=== PATIENT | female | born 1990 | race Caucasian/White ===

== ENCOUNTER 2016-12-14 14:26 | Emergency (ER) | payer OTHER ==
--- NOTE | 2016-12-14 17:22 | DIAGNOSTIC IMAGING REPORT ---
PROCEDURE: US 2ND TRIMESTER INDICATION: Pain. Nausea and vomiting. TECHNIQUE: Arreguin scale, color, and spectral Doppler images of the second trimester gravid uterus were obtained. COMPARISON: None. FINDINGS: There is a viable intrauterine in cephalic position. Placenta is anterior and there is no evidence of previa. Normal amniotic fluid and cervix length (4.6 cm). BPD 7.1 cm ( 28.3 weeks), HC 26.2 cm (28.3 weeks), AC 23.6 cm (28.0 weeks), FL 5.2 cm (27.7 weeks). Anatomic survey was not performed (as requested). IMPRESSION: 1. Viable intrauterine at 28.0 weeks menstrual age (plus or minus 2.5 weeks). ARVIND is 03/07/2017 based on today's study. 2. Cephalic position. 3. No evidence of acute process.
--- NOTE | 2016-12-14 17:39 | ED NURSING NOTES ---
Clinical Report - Nurses [facility] [address] [place] [address] 12/14/2016 14:30 Patient: JASON HODGSON TRIAGE Triage time 14:Dec 14 2016. Acuity: LEVEL 3. Chief Complaint: ABDOMINAL PAIN, NAUSEA and VOMITING. [place] COMA SCORE: [place] Coma Scale: 15- eyes open spontaneously (4); best verbal response- oriented x 4 (5); best motor response- obeys commands (6). --14:41 Katarina Bueno R.N. 14:36 12/14/16. BP: 113/66. HR: 112. RR: 20. O2 saturation: 100%. Temp: 98.0 F. Pain level now 0/10. --14:41 Katarina Bueno R.N. Weight: 93.4 kg stated. Height/Length: 65 inches Per Patient. BMI: 34.3. --14:37 Katarina Bueno R.N. Medications Vitamins Oral. --14:37 Katarina Bueno R.N. Allergies No Known Drug Allergy. --14:37 Katarina Bueno R.N. History Arrived by private vehicle. Historian: patient. Accompanied by family. This started today. She has had nausea, vomiting and abdominal pain. Last oral intake by patient was lunch yesterday. PAST MEDICAL HX: Currently : EDC:03/15/17. Has had care by architectural draftsman. G 2. P 1. Ab 0. SOCIAL HX: Smoker- current status unknown (around second hand smoke). Alcohol use. Patient smells of ETOH in the emergency department. No recent travel. She has had contact with a sick individual. ( and son throwing up). SELF HARM ASSESSMENT: A self harm assessment was performed. The patient answered "no" to the question "Have you recently felt down, depressed, or hopeless?" and "Do you have thoughts of harming or killing yourself?". FALL RISK ASSESSMENT: Fall risk assessment completed. No fall risk identified. NUTRITIONAL RISK ASSESSMENT: The nutritional risk assessment revealed no deficiencies. FUNCTIONAL ASSESSMENT: Functional assessment: no impairments noted. LEARNING NEEDS ASSESSMENT: The learning needs assessment revealed no barriers. ABUSE ASSESSMENT: Abuse assessment: (yes) The patient was asked "Do you feel safe in your home?". SKIN INTEGRITY ASSESSMENT: Skin integrity risk assessment completed. No skin integrity risk identified. --14:41 Katarina Bueno R.N. PROBLEMS: no known problems. ADDITIONAL SURGERIES: no known surgeries. Interventions ID band on patient. --14:41 Katarina Bueno R.N. PHYSICAL ASSESSMENT Ambulatory to room. GENERAL / NEURO / PSYCH: Alert. Oriented X 4. Appears in no acute distress. HEENT: Mucous membranes are pink. RESPIRATORY: Respirations not labored. Breath sounds within normal limits. CVS: Normal sinus rhythm noted. Capillary refill less than 2 seconds. GI / : The patient has had nausea. Emesis noted. Abdominal tenderness. SKIN: Skin is warm and dry. --14:44 Katarina Bueno R.N. NURSING PROGRESS NOTES The initial plan of care for this patient includes an assessment with efforts to address patient positioning, appropriate ambient lighting and comfortable environmental temperature; impairment of the gastrointestinal system. Pulse oximeter and NIBP monitor placed on patient. Patient gowned. Head of bed elevated 60 degrees. Call light placed in reach. Side rails up x 1. Bed placed in lowest position. Brakes of bed on. ( FHR 155). --14:44 Katarina Bueno R.N. 14:56 12/14/2016 Site #1 started via IV in the right hand with an 22g angiocath, with aseptic technique and good blood return; two attempts. Saline lock flushed with 10 mL saline. --14:56 Katarina Bueno R.N. 14:56 12/14/2016 Started bag #1 1000 mL IV Fluids IV NS (Saline); at 1000 mL/hr over 0.5 hour(s) via site #1 via IV pump. Allergies verified and confirmed 5 rights. IV patency established. IV site checked: no pain, redness, or swelling. IV flushed thoroughly pre- and post-medication administration. --14:56 Katarina Bueno R.N. 14:57 12/14/2016 Zofran (Ondansetron HCl) IVP 4 mg given over 2 minute(s) via site #1. Allergies verified and confirmed 5 rights. IV patency established. IV site checked: no pain, redness, or swelling. IV flushed thoroughly pre- and post-medication administration. --14:57 Katarina Bueno R.N. DISPOSITION / DISCHARGE 17:30 12/14/2016 IV Fluids IV NS Discontinued: bag #1 infused. Total amount infused: 1000 mL. IV patency established. IV site checked: no pain, redness, or swelling. IV flushed thoroughly. --17:55 Katarina Bueno R.N. 17:54 12/14/2016 Site #1 removed upon discharge. Catheter intact. Pressure dressing applied. --17:54 Katarina Bueno R.N. Departure time: 1750. Condition at departure: improved. No learning barriers present. Discharge instructions provided and reviewed with the patient. Reviewed warnings. Reviewed medication(s). Treatments reviewed. Reviewed referrals. Patient verbalized understanding. Written instructions provided in Wolof. The patient was discharged home and accompanied by spouse. She left the Emergency Department ambulatory and via private vehicle. Spouse driving. --17:55 Katarina Bueno R.N. 17:52 12/14/16. BP: 90/60. HR: 100. RR: 18. O2 saturation: 100%. Temp: 98.6 F. Pain level now 0/10. --17:55 Katarina Bueno R.N. Locked/Released at 12/14/2016 17:55 by Katarina Bueno R.N.
--- NOTE | 2016-12-14 17:39 | ED ORDER SUMMARY ---
..... Patient: JASON HODGSON OrderSheet [facility] VisitID: [id number] [address] [place] [address] 26y, F Registration Date/Time: 12/14/2016 ORDER SHEET Weight: 93.4 kg (stated) Allergies: No Known Drug Allergy GENERAL ORDERS: CBC w Diff Urgent (14:36 12/14/2016 Debbie PAVON) (Ack 14:39 LNations ER Tech1) (14:56 LWhalen R.N.) CMP Urgent (14:36 12/14/2016 Debbie PAVON) (Ack 14:40 LNations ER Tech1) (14:56 LWhalen R.N.) UA-Culture if indicated Urgent (14:36 12/14/2016 Debbie PAVON) (Ack 14:40 LNations ER Tech1) (14:56 LWhalen R.N.) Amylase Urgent (14:36 12/14/2016 Debbie PAVON) (Ack 14:40 LNations ER Tech1) (14:56 LWhalen R.N.) Lipase Urgent (14:36 12/14/2016 Debbie PAVON) (Ack 14:40 LNations ER Tech1) (14:56 LWhalen R.N.) Heart Tones (14:36 12/14/2016 Debbie PAVON) (Ack 14:39 LNations ER Tech1) (14:56 LWhalen R.N.) US OB 2nd Trimester (13 June 2016) Urgent (16:20 12/14/2016 Debbie PAVON) (Ack 16:25 LNations ER Tech1) (17:55 LWhalen R.N.) MEDICATION ORDERS: IV FLUIDS: IV NS : initial bolus 500 mL (1000 mL/hr), then 125 mL/hr for 4h (NOW); Urgent (14:35 12/14/2016 Debbie PAVON) (14:56 LWhalen R.N.) Zofran IV 4 mg (NOW) (14:57 12/14/2016 LWhalen R.N. per protocol) (14:57 LWhalen R.N.) ORDER SHEET NOTES: [Electronically signed by Katarina Bueno R.N. (17:55 12/14/2016)] [Electronically signed by Nikita Phillips MD (01:14 12/15/2016)] [Electronically locked/signed by Katarina Bueno R.N. (17:55 12/14/2016)]
--- NOTE | 2016-12-14 17:39 | ED CLINICAL REPORT ---
Clinical Report - Physicians/Mid Levels [facility] [address] [place] [place] [address] 12/14/2016 14:30 Patient: JASON HODGSON Time Seen: 14:35. Arrived- By private vehicle. Historian- patient. HISTORY OF PRESENT ILLNESS Chief Complaint: VOMITING. This started last night and is still present. It was abrupt in onset and has been intermittent. No recent travel. She has had nausea. She has had vomiting. The vomiting has occurred numerous times. No blood-tinged emesis or frankly bloody emesis. No diarrhea, black stools, bloody stools, constipation or flank pain. She has had crampy abdominal pain (cramping). Has recently been camping ([facility]) but not recently been on antibiotics. 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 She has had contact with a sick spouse and child. Last bowel movement: yesterday. The illness is described as severe. Similar symptoms previously: None. REVIEW OF SYSTEMS Last normal menstrual period- 13 Jun 2016. Currently : 26 weeks EGA: EDC:15 Mar 2017 Has had care by wood technologist. Recent sonogram showed viable intrauterine . G 2. P 1. No chills, fever, sweats, calf pain or chest pain. No cough, difficulty breathing, palpitations, black stools or bloody stools. No constipation or urinary problems. she denies headache or vision changes. She has had no vaginal bleeding or abnormal discharge. She denies contractions. She has had some mild chronic leg swelling throughout her which remains unchanged. All systems otherwise negative, except as recorded above. SOCIAL HISTORY Never smoker. No alcohol use. Residence: [place] she lives with spouse. Has good social support. FAMILY HISTORY Diabetes in first-degree relative (mother) and grandparent. ADDITIONAL NOTES The nursing notes have been reviewed. PHYSICAL EXAM Vital Signs: 12/14/2016 14:36 BP: 113/66. HR: 112. RR: 20. O2 saturation: 100%. Temp: 98.0 F. Have been reviewed. Appearance: Alert. She is morbidly obese. Eyes: Pupils equal, round and reactive to light. ENT: Pharynx normal. Neck: Normal inspection. Neck supple. CVS: Normal heart rate and rhythm. Heart sounds normal. Respiratory: No respiratory distress. Breath sounds normal. Abdomen: Soft and nontender. Gravid uterus. Bowel sounds normal. No organomegaly. Back: Normal inspection. No CVA tenderness. Skin: Skin warm and dry. Normal skin color. Normal skin turgor. Extremities: Extremities exhibit normal ROM. No calf tenderness. No lower extremity edema. LABS, X-RAYS, AND EKG Pelvic Sonogram: An intrauterine (28 week size) is present. Cardiac activity present (160). vertex, anterior placenta, cervix closed, adequate fluid discussed with the US tech. The study was independently viewed by me. Laboratory Tests: UA-Culture if indicated: (FRANKLIN: 12/14/2016 14:35) ( [facility] 12/14/2016 15:32) Final results Test Result Flag Units (Reference) URINE COLOR YELLOW URINE APPEARANCE CLEAR URINE GLUCOSE NEGATIVE (NEGATIVE) URINE BILIRUBIN NEGATIVE (NEGATIVE) URINE KETONE 3+ (NEGATIVE) URINE SPECIFIC GRAVITY 1.015 (1.010-1.030) URINE PH 8.0 (5.0-8.0) URINE PROTEIN NEGATIVE (NEGATIVE) URINE UROBILINOGEN 1.0 EU/dL (0.2-1.0) URINE NITRITE NEGATIVE (NEGATIVE) URINE BLOOD NEGATIVE (NEGATIVE) URINE LEUK ESTERASE NEGATIVE (NEGATIVE) URINE RBC 0-1 rbc/hpf (0-1) URINE WBC 1-3 wbc/hpf (0-1) URINE EPITHELIAL CELLS 3-5 EPI/hpf (0-5) URINE BACTERIA FEW (1+) (NONE SEEN) URINE COMMENT CULT NOT INDICATED URINE CULTURES ARE SET-UP BASED ON THE FOLLOWING CRITERIA:POSITIVE NITRITEPOSITIVE LEUKOCYTE ESTERASEGREATER THAN 10 WHITE BLOOD CELLSMODERATE (2+) OR GREATER BACTERIA CBC w Diff: (FRANKLIN: 12/14/2016 14:55) ( [facility] 12/14/2016 15:21) Final results Test Result Flag Units (Reference) WHITE BLOOD COUNT 8.8 K/uL (4.5-11.5) RED BLOOD COUNT 4.51 M/uL (4.00-5.20) HEMOGLOBIN 13.7 gm/dL (12.0-16.0) HEMATOCRIT 41.1 % (36.0-46.0) MEAN CELL VOLUME 91 fL (80-100) MEAN CORPUSCULAR HGB 30 pg (26-34) MEAN CORPUSCULAR HGB CONC 33 g/dL (31-37) RED CELL DISTRIBUTION WIDTH 13.2 % (11.6-14.8) PLATELET COUNT 206 K/uL (150-400) NEUTROPHIL % 89.8 H % (50-75) LYMPH % 5.3 L % (25-40) MONO % 3.7 % (3-14) EOSINOPHIL % 1.1 % (0-4) BASOPHIL % 0.1 % (0-2) CMP: (FRANKLIN: 12/14/2016 14:55) ( Msg[facility]cvd 12/14/2016 15:26) Final results Test Result Flag Units (Reference) GLUCOSE 79 mg/dL (70-110) BUN 6 L mg/dL (7-18) CREATININE 0.4 L mg/dL (0.6-1.3) Estimated GFR >60 mL/min Estimated GFR- >60 mL/min Note: Persistent reduction over 3 months in eGFR<60 mL/min/1.73 m2 defines CKD. Patients with eGFR values>=60 mL/min/1.73 m2 may also have CKD if evidence ofpersistent proteinuria. Additional information may be foundat www.kidney.org. SODIUM 139 mmol/L (136-145) POTASSIUM 3.8 mmol/L (3.5-5.1) CHLORIDE 104 mmol/L (98-107) CARBON DIOXIDE 21 mmol/L (21-32) CALCIUM 8.3 L mg/dL (8.5-10.1) TOTAL PROTEIN 6.0 L g/dL (6.4-8.2) ALBUMIN 3.0 L g/dL (3.3-5.0) BILIRUBIN, TOTAL 0.5 mg/dL (0.0-1.0) ALKALINE PHOSPHATASE 53 U/L (46-116) AST (SGOT) 29 U/L (15-37) ALT (SGPT) 30 U/L (12-78) LIPASE 89 U/L (73-393) AMYLASE 29 U/L (25-115) . PROGRESS AND PROCEDURES Course of Care: Symptoms better. Vital signs have been reviewed. Physical exam findings are improved. Alert. No acute distress. Breath sounds normal. No respiratory distress. Normal heart rate and rhythm. Heart sounds normal. Abdomen soft and nontender. Skin warm and dry. Patient/family counseled. Old medical records ordered. Disposition: Discharged. Condition: stable. CLINICAL IMPRESSION Second trimester . Vomiting with nausea. INSTRUCTIONS Rest. Do not work until released. Drink plenty of fluids. (Contact your OB provider and schedule an appointment to be checked by them again tomorrow as discussed. Their contact information is as follows: [facility] P: F: [address] [place] [phone]). Warnings: Further evaluation is necessary. GENERAL WARNINGS: Return or contact your physician immediately if your condition worsens or changes unexpectedly, if not improving as expected, or if other problems arise. Your Current Medications: CONTINUE TAKING THE FOLLOWING MEDICATIONS: Vitamins Oral. Prescription Medications: Zofran 4 mg: Take 1 orally every six hours as needed for nausea/vomiting. Dispense ten (10). No refills. Substitution is permissible. Follow-up: Follow up with your doctor tomorrow. Call for an appointment. Understanding of the discharge instructions verbalized by patient. (Electronically signed by Nikita Phillips MD 12/15/2016 1:14)
--- NOTE | 2016-12-14 17:39 | ED CLINICAL REPORT ---
Clinical Report - Physicians/Mid Levels [facility] [address] [place] [address] 12/14/2016 14:30 Patient: JASON HODGSON Time Seen: 14:35. Arrived- By private vehicle. Historian- patient. HISTORY OF PRESENT ILLNESS Chief Complaint: VOMITING. This started last night and is still present. It was abrupt in onset and has been intermittent. No recent travel. She has had nausea. She has had vomiting. The vomiting has occurred numerous times. No blood-tinged emesis or frankly bloody emesis. No diarrhea, black stools, bloody stools, constipation or flank pain. She has had crampy abdominal pain (cramping). Has recently been camping ([facility]) but not recently been on antibiotics. 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 She has had contact with a sick spouse and child. Last bowel movement: yesterday. The illness is described as severe. Similar symptoms previously: None. REVIEW OF SYSTEMS Last normal menstrual period- 13 Jun 2016. Currently : 26 weeks EGA: EDC:15 Mar 2017 Has had care by publicity director. Recent sonogram showed viable intrauterine . G 2. P 1. No chills, fever, sweats, calf pain or chest pain. No cough, difficulty breathing, palpitations, black stools or bloody stools. No constipation or urinary problems. she denies headache or vision changes. She has had no vaginal bleeding or abnormal discharge. She denies contractions. She has had some mild chronic leg swelling throughout her which remains unchanged. All systems otherwise negative, except as recorded above. SOCIAL HISTORY Never smoker. No alcohol use. Residence: [place] she lives with spouse. Has good social support. FAMILY HISTORY Diabetes in first-degree relative (mother) and grandparent. ADDITIONAL NOTES The nursing notes have been reviewed. PHYSICAL EXAM Vital Signs: 12/14/2016 14:36 BP: 113/66. HR: 112. RR: 20. O2 saturation: 100%. Temp: 98.0 F. Have been reviewed. Appearance: Alert. She is morbidly obese. Eyes: Pupils equal, round and reactive to light. ENT: Pharynx normal. Neck: Normal inspection. Neck supple. CVS: Normal heart rate and rhythm. Heart sounds normal. Respiratory: No respiratory distress. Breath sounds normal. Abdomen: Soft and nontender. Gravid uterus. Bowel sounds normal. No organomegaly. Back: Normal inspection. No CVA tenderness. Skin: Skin warm and dry. Normal skin color. Normal skin turgor. Extremities: Extremities exhibit normal ROM. No calf tenderness. No lower extremity edema. LABS, X-RAYS, AND EKG Pelvic Sonogram: An intrauterine (28 week size) is present. Cardiac activity present (160). vertex, anterior placenta, cervix closed, adequate fluid discussed with the US tech. The study was independently viewed by me. Laboratory Tests: UA-Culture if indicated: (FRANKLIN: 12/14/2016 14:35) ( [facility] 12/14/2016 15:32) Final results Test Result Flag Units (Reference) URINE COLOR YELLOW URINE APPEARANCE CLEAR URINE GLUCOSE NEGATIVE (NEGATIVE) URINE BILIRUBIN NEGATIVE (NEGATIVE) URINE KETONE 3+ (NEGATIVE) URINE SPECIFIC GRAVITY 1.015 (1.010-1.030) URINE PH 8.0 (5.0-8.0) URINE PROTEIN NEGATIVE (NEGATIVE) URINE UROBILINOGEN 1.0 EU/dL (0.2-1.0) URINE NITRITE NEGATIVE (NEGATIVE) URINE BLOOD NEGATIVE (NEGATIVE) URINE LEUK ESTERASE NEGATIVE (NEGATIVE) URINE RBC 0-1 rbc/hpf (0-1) URINE WBC 1-3 wbc/hpf (0-1) URINE EPITHELIAL CELLS 3-5 EPI/hpf (0-5) URINE BACTERIA FEW (1+) (NONE SEEN) URINE COMMENT CULT NOT INDICATED URINE CULTURES ARE SET-UP BASED ON THE FOLLOWING CRITERIA:POSITIVE NITRITEPOSITIVE LEUKOCYTE ESTERASEGREATER THAN 10 WHITE BLOOD CELLSMODERATE (2+) OR GREATER BACTERIA CBC w Diff: (FRANKLIN: 12/14/2016 14:55) ( [facility] 12/14/2016 15:21) Final results Test Result Flag Units (Reference) WHITE BLOOD COUNT 8.8 K/uL (4.5-11.5) RED BLOOD COUNT 4.51 M/uL (4.00-5.20) HEMOGLOBIN 13.7 gm/dL (12.0-16.0) HEMATOCRIT 41.1 % (36.0-46.0) MEAN CELL VOLUME 91 fL (80-100) MEAN CORPUSCULAR HGB 30 pg (26-34) MEAN CORPUSCULAR HGB CONC 33 g/dL (31-37) RED CELL DISTRIBUTION WIDTH 13.2 % (11.6-14.8) PLATELET COUNT 206 K/uL (150-400) NEUTROPHIL % 89.8 H % (50-75) LYMPH % 5.3 L % (25-40) MONO % 3.7 % (3-14) EOSINOPHIL % 1.1 % (0-4) BASOPHIL % 0.1 % (0-2) CMP: (FRANKLIN: 12/14/2016 14:55) ( MsgRcvd 12/14/2016 15:26) Final results Test Result Flag Units (Reference) GLUCOSE 79 mg/dL (70-110) BUN 6 L mg/dL (7-18) CREATININE 0.4 L mg/dL (0.6-1.3) Estimated GFR >60 mL/min Estimated GFR- >60 mL/min Note: Persistent reduction over 3 months in eGFR<60 mL/min/1.73 m2 defines CKD. Patients with eGFR values>=60 mL/min/1.73 m2 may also have CKD if evidence ofpersistent proteinuria. Additional information may be foundat www.kidney.org. SODIUM 139 mmol/L (136-145) POTASSIUM 3.8 mmol/L (3.5-5.1) CHLORIDE 104 mmol/L (98-107) CARBON DIOXIDE 21 mmol/L (21-32) CALCIUM 8.3 L mg/dL (8.5-10.1) TOTAL PROTEIN 6.0 L g/dL (6.4-8.2) ALBUMIN 3.0 L g/dL (3.3-5.0) BILIRUBIN, TOTAL 0.5 mg/dL (0.0-1.0) ALKALINE PHOSPHATASE 53 U/L (46-116) AST (SGOT) 29 U/L (15-37) ALT (SGPT) 30 U/L (12-78) LIPASE 89 U/L (73-393) AMYLASE 29 U/L (25-115) . PROGRESS AND PROCEDURES Course of Care: Symptoms better. Vital signs have been reviewed. Physical exam findings are improved. Alert. No acute distress. Breath sounds normal. No respiratory distress. Normal heart rate and rhythm. Heart sounds normal. Abdomen soft and nontender. Skin warm and dry. Patient/family counseled. Old medical records ordered. Disposition: Discharged. Condition: stable. CLINICAL IMPRESSION Second trimester . Vomiting with nausea. INSTRUCTIONS Rest. Do not work until released. Drink plenty of fluids. (Contact your OB provider and schedule an appointment to be checked by them again tomorrow as discussed. Their contact information is as follows: [facility] P: F: [address] [place] [phone]). Warnings: Further evaluation is necessary. GENERAL WARNINGS: Return or contact your physician immediately if your condition worsens or changes unexpectedly, if not improving as expected, or if other problems arise. Your Current Medications: CONTINUE TAKING THE FOLLOWING MEDICATIONS: Vitamins Oral. Prescription Medications: Zofran 4 mg: Take 1 orally every six hours as needed for nausea/vomiting. Dispense ten (10). No refills. Substitution is permissible. Follow-up: Follow up with your doctor tomorrow. Call for an appointment. Understanding of the discharge instructions verbalized by patient. (Electronically signed by Nikita Phillips MD 12/15/2016 1:14)
--- NOTE | 2016-12-14 17:39 | ED ORDER SUMMARY ---
..... Patient: JASON HODGSON OrderSheet [facility] VisitID: [id number] [address] [place] [address] 26y, F Registration Date/Time: 12/14/2016 ORDER SHEET Weight: 93.4 kg (stated) Allergies: No Known Drug Allergy GENERAL ORDERS: CBC w Diff Urgent (14:36 12/14/2016 Debbie PAVON) (Ack 14:39 LNations ER Tech1) (14:56 LWhalen R.N.) CMP Urgent (14:36 12/14/2016 Debbie PAVON) (Ack 14:40 LNations ER Tech1) (14:56 LWhalen R.N.) UA-Culture if indicated Urgent (14:36 12/14/2016 Debbie PAVON) (Ack 14:40 LNations ER Tech1) (14:56 LWhalen R.N.) Amylase Urgent (14:36 12/14/2016 Debbie PAVON) (Ack 14:40 LNations ER Tech1) (14:56 LWhalen R.N.) Lipase Urgent (14:36 12/14/2016 Debbie PAVON) (Ack 14:40 LNations ER Tech1) (14:56 LWhalen R.N.) Heart Tones (14:36 12/14/2016 Debbie PAVON) (Ack 14:39 LNations ER Tech1) (14:56 LWhalen R.N.) US OB 2nd Trimester (13 June 2016) Urgent (16:20 12/14/2016 Debbie PAVON) (Ack 16:25 LNations ER Tech1) (17:55 LWhalen R.N.) MEDICATION ORDERS: IV FLUIDS: IV NS : initial bolus 500 mL (1000 mL/hr), then 125 mL/hr for 4h (NOW); Urgent (14:35 12/14/2016 Debbie PAVON) (14:56 LWhalen R.N.) Zofran IV 4 mg (NOW) (14:57 12/14/2016 LWhalen R.N. per protocol) (14:57 LWhalen R.N.) ORDER SHEET NOTES: [Electronically signed by Katarina Bueno R.N. (17:55 12/14/2016)] [Electronically signed by Nikita Phillips MD (01:14 12/15/2016)] [Electronically locked/signed by Katarina Bueno R.N. (17:55 12/14/2016)]
--- NOTE | 2016-12-15 01:14 | ED DISCHARGE INSTRUCTIONS ---
Patient: JASON HODGSON General Instructions [facility] VisitID: [id number] [place] [place] [address] 26y, F Registration Date/Time: 12/14/2016 Second trimester . Vomiting with nausea. INSTRUCTIONS Rest. Do not work until released. Drink plenty of fluids. (Contact your OB provider and schedule an appointment to be checked by them again tomorrow as discussed. Their contact information is as follows: [facility] P: F: [address] [place] [address]). Warnings: Further evaluation is necessary. GENERAL WARNINGS: Return or contact your physician immediately if your condition worsens or changes unexpectedly, if not improving as expected, or if other problems arise. Your Current Medications: CONTINUE TAKING THE FOLLOWING MEDICATIONS: Vitamins Oral. Prescription Medications: Zofran 4 mg: Take 1 orally every six hours as needed for nausea/vomiting. Dispense ten (10). No refills. Substitution is permissible. Follow-up: Follow up with your doctor tomorrow. Call for an appointment. Understanding of the discharge instructions verbalized by patient. ADDITIONAL INFORMATION Vomiting [6Yr-Adult] Vomiting is a common symptom that may be due to different causes. These include gastroenteritis ("stomach flu"), food poisoning and gastritis. There are other more serious causes of vomiting which may be hard to diagnose early in the illness. Therefore, it is important to watch for the warning signs listed below. The main danger from repeated vomiting is dehydration. This is due to excess loss of water and minerals from the body. When this occurs, body fluids must be replaced. Home Care: If symptoms are severe, rest at home for the next 24 hours. You may use acetaminophen (Tylenol) or ibuprofen (Motrin, Advil) to control fever, unless another medicine was prescribed. [NOTE : If you have chronic liver or kidney disease or ever had a stomach ulcer or GI bleeding, talk with your doctor before using these medicines.] (Aspirin should never be used in anyone under 18 years of age who is ill with a fever. It may cause severe liver damage.) Avoid tobacco and alcohol use, which may worsen your symptoms. If medicines for vomiting were prescribed, take as directed. Once vomiting stops, then follow these guidelines: During The First 12-24 Hours follow the diet below: FRUIT JUICES: Apple, grape juice, clear fruit drinks, and electrolyte replacement drinks. BEVERAGES: Soft drinks without caffeine; mineral water (plain or flavored), decaffeinated tea and coffee. SOUPS: Clear broth, consomm and bouillon DESSERTS: Plain gelatin, popsicles and fruit juice bars. As you feel better, you may add 6-8 ounces of yogurt per day. During The Next 24 Hours you may add the following to the above: Hot cereal, plain toast, bread, rolls, crackers Plain noodles, rice, mashed potatoes, chicken noodle or rice soup Unsweetened canned fruit (avoid pineapple), bananas Limit caffeine and chocolate. No spices or seasonings except salt. During The Next 24 Hours Gradually resume a normal diet, as you feel better and your symptoms lessen. Follow Up with your doctor as advised if you are not improving over the next 2-3 days. Get Prompt Medical Attention if any of the following occur: Constant right-sided lower abdominal pain or increasing general abdominal pain Continued vomiting (unable to keep liquids down) for 24 hours Frequent diarrhea (more than 5 times a day); blood (red or black color) or mucus in diarrhea Reduced urine output or extreme thirst Weakness, dizziness or fainting Unusually drowsy or confused Fever of 100.4F (38C) oral or higher, not better with fever medication Yellow color of the eyes or skin Ondansetron Oral disintegrating tablet What is this medicine? ONDANSETRON (on ELIZABETH se melo) is used to treat nausea and vomiting caused by chemotherapy. It is also used to prevent or treat nausea and vomiting after surgery. How should I use this medicine? These tablets are made to dissolve in the mouth. Do not try to push the tablet through the foil backing. With dry hands, peel away the foil backing and gently remove the tablet. Place the tablet in the mouth and allow it to dissolve, then swallow. While you may take these tablets with water, it is not necessary to do so. Talk to your armed security guard regarding the use of this medicine in children. Special care may be needed. What side effects may I notice from receiving this medicine? Side effects that you should report to your doctor or health lpn care manager as soon as possible: allergic reactions like skin rash, itching or hives, swelling of the face, lips, or tongue breathing problems dizziness fast or irregular heartbeat feeling faint or lightheaded, falls fever and chills swelling of the hands and feet tightness in the chest Side effects that usually do not require medical attention (report to your doctor or health lpn care manager if they continue or are bothersome): constipation or diarrhea headache What may interact with this medicine? Do not take this medicine with any of the following medications: -apomorphine -cisapride -dofetilide -dronedarone -pimozide -thioridazine -ziprasidone This medicine may also interact with the following medications: -carbamazepine -phenytoin -rifampicin -tramadol -other medicines that prolong the QT interval (cause an abnormal heart rhythm) What if I miss a dose? If you miss a dose, take it as soon as you can. If it is almost time for your next dose, take only that dose. Do not take double or extra doses. Where should I keep my medicine? Keep out of the reach of children. Store between 2 and 30 degrees C (36 and 86 degrees F). Throw away any unused medicine after the expiration date. What should I tell my health care provider before I take this medicine? They need to know if you have any of these conditions: heart disease history of irregular heartbeat liver disease low levels of magnesium or potassium in the blood an unusual or allergic reaction to ondansetron, granisetron, other medicines, foods, dyes, or preservatives or trying to get breast-feeding What should I watch for while using this medicine? Check with your doctor or health lpn care manager as soon as you can if you have any sign of an allergic reaction. You have been given the following additional information: Vomiting (6Y-Adult) Ondansetron Oral disintegrating tablet Rest. Do not work until released. (Electronically signed by Nikita Phillips MD 12/15/2016 1:14)
--- NOTE | 2016-12-15 01:14 | ED MED RECONCILIATION SUMMARY ---
Patient: JASON HODGSON Medication Reconciliation Report [facility] VisitID: [id number] [address] [place] [place] [address] 26y, F Registration Date/Time: 12/14/2016 Weight: 93.4 kg Height/Length: 65 in. BMI: 34.3 ALLERGIES: No Known Drug Allergy The patient's Home Medications are listed below: CONTINUE TAKING THE FOLLOWING MEDICATIONS: Vitamins Oral The source(s) of the original Home Medication information: Not obtained. The following Medications were given to the patient in the Emergency Department: IV NS IV Fluids bolus 0, then 1000 mL/hr, administered: 12/14/2016 2:56:00 PM Zofran [IVP] IVP 4 mg, administered: 12/14/2016 2:57:00 PM The following Medications were prescribed to the patient: Zofran 4 mg: Take 1 orally every six hours as needed for nausea/vomiting. Dispense ten (10). No refills. Substitution is permissible. -- Nikita Phillips MD
--- NOTE | 2016-12-15 01:14 | ED MAR SUMMARY ---
..... Medication Administration Record [facility] [address] [place] [address] Patient: JASON HODGSON Visit ID: [id number] 26y, F Weight: 93.4 kg Height/Length: 65 in BMI: 34.3 ALLERGIES: No Known Drug Allergy Start 14:56 12/14/2016 Katarina Bueno R.N., Stop 17:30 12/14/2016 Katarina Bueno R.N. Medication Administered: IV NS (SALINE), Dose: IV Fluids over 0.5 hour(s), Rate: 1000 mL/hr, Dispensed: 1000 mL bag, Site: #1 right hand. Medication Ordered: IV NS : initial bolus 500 mL (1000 mL/hr), then 125 mL/hr for 4h (NOW); Urgent. Given 14:57 12/14/2016 Katarina Bueno R.N. Medication Administered: ZOFRAN [IVP] (ONDANSETRON HCL), Dose: 4 mg IVP over 2 minute(s), Site: #1 right hand. Medication Ordered: Zofran IV 4 mg (NOW).
--- NOTE | 2016-12-15 01:14 | ED DISCHARGE INSTRUCTIONS ---
Patient: JASON HODGSON General Instructions [facility] VisitID: [id number] [address] [place] [address] 26y, F Registration Date/Time: 12/14/2016 Second trimester . Vomiting with nausea. INSTRUCTIONS Rest. Do not work until released. Drink plenty of fluids. (Contact your OB provider and schedule an appointment to be checked by them again tomorrow as discussed. Their contact information is as follows: [facility] P: F: [address] [place] [address]). Warnings: Further evaluation is necessary. GENERAL WARNINGS: Return or contact your physician immediately if your condition worsens or changes unexpectedly, if not improving as expected, or if other problems arise. Your Current Medications: CONTINUE TAKING THE FOLLOWING MEDICATIONS: Vitamins Oral. Prescription Medications: Zofran 4 mg: Take 1 orally every six hours as needed for nausea/vomiting. Dispense ten (10). No refills. Substitution is permissible. Follow-up: Follow up with your doctor tomorrow. Call for an appointment. Understanding of the discharge instructions verbalized by patient. ADDITIONAL INFORMATION Vomiting [6Yr-Adult] Vomiting is a common symptom that may be due to different causes. These include gastroenteritis ("stomach flu"), food poisoning and gastritis. There are other more serious causes of vomiting which may be hard to diagnose early in the illness. Therefore, it is important to watch for the warning signs listed below. The main danger from repeated vomiting is dehydration. This is due to excess loss of water and minerals from the body. When this occurs, body fluids must be replaced. Home Care: If symptoms are severe, rest at home for the next 24 hours. You may use acetaminophen (Tylenol) or ibuprofen (Motrin, Advil) to control fever, unless another medicine was prescribed. [NOTE : If you have chronic liver or kidney disease or ever had a stomach ulcer or GI bleeding, talk with your doctor before using these medicines.] (Aspirin should never be used in anyone under 18 years of age who is ill with a fever. It may cause severe liver damage.) Avoid tobacco and alcohol use, which may worsen your symptoms. If medicines for vomiting were prescribed, take as directed. Once vomiting stops, then follow these guidelines: During The First 12-24 Hours follow the diet below: FRUIT JUICES: Apple, grape juice, clear fruit drinks, and electrolyte replacement drinks. BEVERAGES: Soft drinks without caffeine; mineral water (plain or flavored), decaffeinated tea and coffee. SOUPS: Clear broth, consomm and bouillon DESSERTS: Plain gelatin, popsicles and fruit juice bars. As you feel better, you may add 6-8 ounces of yogurt per day. During The Next 24 Hours you may add the following to the above: Hot cereal, plain toast, bread, rolls, crackers Plain noodles, rice, mashed potatoes, chicken noodle or rice soup Unsweetened canned fruit (avoid pineapple), bananas Limit caffeine and chocolate. No spices or seasonings except salt. During The Next 24 Hours Gradually resume a normal diet, as you feel better and your symptoms lessen. Follow Up with your doctor as advised if you are not improving over the next 2-3 days. Get Prompt Medical Attention if any of the following occur: Constant right-sided lower abdominal pain or increasing general abdominal pain Continued vomiting (unable to keep liquids down) for 24 hours Frequent diarrhea (more than 5 times a day); blood (red or black color) or mucus in diarrhea Reduced urine output or extreme thirst Weakness, dizziness or fainting Unusually drowsy or confused Fever of 100.4F (38C) oral or higher, not better with fever medication Yellow color of the eyes or skin Ondansetron Oral disintegrating tablet What is this medicine? ONDANSETRON (on ELIZABETH se melo) is used to treat nausea and vomiting caused by chemotherapy. It is also used to prevent or treat nausea and vomiting after surgery. How should I use this medicine? These tablets are made to dissolve in the mouth. Do not try to push the tablet through the foil backing. With dry hands, peel away the foil backing and gently remove the tablet. Place the tablet in the mouth and allow it to dissolve, then swallow. While you may take these tablets with water, it is not necessary to do so. Talk to your scrap baller regarding the use of this medicine in children. Special care may be needed. What side effects may I notice from receiving this medicine? Side effects that you should report to your doctor or health customer care representative as soon as possible: allergic reactions like skin rash, itching or hives, swelling of the face, lips, or tongue breathing problems dizziness fast or irregular heartbeat feeling faint or lightheaded, falls fever and chills swelling of the hands and feet tightness in the chest Side effects that usually do not require medical attention (report to your doctor or health customer care representative if they continue or are bothersome): constipation or diarrhea headache What may interact with this medicine? Do not take this medicine with any of the following medications: -apomorphine -cisapride -dofetilide -dronedarone -pimozide -thioridazine -ziprasidone This medicine may also interact with the following medications: -carbamazepine -phenytoin -rifampicin -tramadol -other medicines that prolong the QT interval (cause an abnormal heart rhythm) What if I miss a dose? If you miss a dose, take it as soon as you can. If it is almost time for your next dose, take only that dose. Do not take double or extra doses. Where should I keep my medicine? Keep out of the reach of children. Store between 2 and 30 degrees C (36 and 86 degrees F). Throw away any unused medicine after the expiration date. What should I tell my health care provider before I take this medicine? They need to know if you have any of these conditions: heart disease history of irregular heartbeat liver disease low levels of magnesium or potassium in the blood an unusual or allergic reaction to ondansetron, granisetron, other medicines, foods, dyes, or preservatives or trying to get breast-feeding What should I watch for while using this medicine? Check with your doctor or health customer care representative as soon as you can if you have any sign of an allergic reaction. You have been given the following additional information: Vomiting (6Y-Adult) Ondansetron Oral disintegrating tablet Rest. Do not work until released. (Electronically signed by Nikita Phillips MD 12/15/2016 1:14)
--- NOTE | 2016-12-15 01:14 | ED MED RECONCILIATION SUMMARY ---
Patient: JASON HODGSON Medication Reconciliation Report [facility] VisitID: [id number] [address] [place] [place] [address] 26y, F Registration Date/Time: 12/14/2016 Weight: 93.4 kg Height/Length: 65 in. BMI: 34.3 ALLERGIES: No Known Drug Allergy The patient's Home Medications are listed below: CONTINUE TAKING THE FOLLOWING MEDICATIONS: Vitamins Oral The source(s) of the original Home Medication information: Not obtained. The following Medications were given to the patient in the Emergency Department: IV NS IV Fluids bolus 0, then 1000 mL/hr, administered: 12/14/2016 2:56:00 PM Zofran [IVP] IVP 4 mg, administered: 12/14/2016 2:57:00 PM The following Medications were prescribed to the patient: Zofran 4 mg: Take 1 orally every six hours as needed for nausea/vomiting. Dispense ten (10). No refills. Substitution is permissible. -- Nikita Phillips MD
--- NOTE | 2016-12-15 01:14 | ED MAR SUMMARY ---
..... Medication Administration Record [facility] [address] [place] [address] Patient: JASON HODGSON Visit ID: [id number] 26y, F Weight: 93.4 kg Height/Length: 65 in BMI: 34.3 ALLERGIES: No Known Drug Allergy Start 14:56 12/14/2016 Katarina Bueno R.N., Stop 17:30 12/14/2016 Katarina Bueno R.N. Medication Administered: IV NS (SALINE), Dose: IV Fluids over 0.5 hour(s), Rate: 1000 mL/hr, Dispensed: 1000 mL bag, Site: #1 right hand. Medication Ordered: IV NS : initial bolus 500 mL (1000 mL/hr), then 125 mL/hr for 4h (NOW); Urgent. Given 14:57 12/14/2016 Katarina Bueno R.N. Medication Administered: ZOFRAN [IVP] (ONDANSETRON HCL), Dose: 4 mg IVP over 2 minute(s), Site: #1 right hand. Medication Ordered: Zofran IV 4 mg (NOW).
== END 2016-12-14 17:50 | disposition home or self-care (01) ==
LOC: ED SRH 14:26
DX: O26.892 Other specified pregnancy related conditions, second trimester (principal); R11.2 Nausea with vomiting, unspecified
CPT/HCPCS: 90004; 90100; 92235; 92530; 95059